=== PATIENT | female | born 1935 | race Caucasian/White ===

== ENCOUNTER 2016-11-19 14:02 | Outpatient (CLI) | payer MEDICARE ==
[2016-11-19 14:56] LABS: Prothrombin Time 26.2 SEC (12.0-14.7)
== END 2016-11-19 14:03 | disposition home or self-care (01) ==
LOC: NAV LAB 14:02
PROVIDERS: ATTEND Nurse Practitioner Family
DX: Z51.81 Encounter for therapeutic drug level monitoring (principal); Z79.01 Long term (current) use of anticoagulants
CPT/HCPCS: 85610

== ENCOUNTER 2016-12-09 14:50 | Outpatient (CLI) | payer MEDICARE ==
[2016-12-09 17:22] LABS: Prothrombin Time 26.7 SEC (12.0-14.7)
== END 2016-12-09 14:51 | disposition home or self-care (01) ==
LOC: NAV LABSP 14:50
PROVIDERS: ATTEND Nurse Practitioner Family
DX: Z51.81 Encounter for therapeutic drug level monitoring (principal); Z79.01 Long term (current) use of anticoagulants
CPT/HCPCS: 85610

== ENCOUNTER 2017-02-23 17:44 | Emergency (ER) | payer MEDICARE ==
[2017-02-23] MEDS ORDERED: traMADol HCl 50 MG TAB ONE (18:59)
--- NOTE | 2017-02-23 19:10 | RAD ---
RIGHT ANKLE THREE VIEWS: 02/23/17 HISTORY: Heel pain. There are prominent calcaneal spurs present. Subtalar joint and ankle joint appear unremarkable. IMPRESSION: Prominent calcaneal spurs. POS: [facility]
== END 2017-02-23 19:10 | disposition home or self-care (01) ==
LOC: NAV ERS 17:44
DX: S86.011A Strain of right Achilles tendon, initial encounter (principal); I25.2 Old myocardial infarction; E03.9 Hypothyroidism, unspecified; E11.9 Type 2 diabetes mellitus without complications; E78.5 Hyperlipidemia, unspecified; E78.00 Pure hypercholesterolemia, unspecified; F17.210 Nicotine dependence, cigarettes, uncomplicated; Z79.899 Other long term (current) drug therapy; Z79.82 Long term (current) use of aspirin; X58.XXXA Exposure to other specified factors, initial encounter

== ENCOUNTER 2017-02-26 11:14 | Emergency (ER) | payer MEDICARE ==
--- NOTE | 2017-02-26 12:42 | RAD ---
RIGHT FOOT 3 VIEWS: Date: 02/26/17 HISTORY: Heel pain. FINDINGS: There are some minimal arthritic changes of the great toe. Prominent calcaneal spurs are seen, parti cularly at the Achilles tendon insertion. No fractures. IMPRESSION: Calcaneal spurs. POS: [facility]
== END 2017-02-26 12:36 | disposition home or self-care (01) ==
LOC: NAV ERS 11:14
DX: M79.671 Pain in right foot (principal); E11.9 Type 2 diabetes mellitus without complications; E03.9 Hypothyroidism, unspecified; I11.0 Hypertensive heart disease with heart failure; I50.9 Heart failure, unspecified; E78.00 Pure hypercholesterolemia, unspecified; Z95.0 Presence of cardiac pacemaker; Z87.891 Personal history of nicotine dependence; Z79.82 Long term (current) use of aspirin; Z79.01 Long term (current) use of anticoagulants; Z79.899 Other long term (current) drug therapy

== ENCOUNTER 2017-03-30 12:48 | Emergency (ER) | payer MEDICARE ==
[2017-03-30 13:23] LABS: #Basophils 0.1 thou/uL (0.0-0.2); #Eosinphils 0.1 thou/uL (0.0-0.7); #Lymphocytes 1.2 thou/uL (1.20-3.40); #Monocytes 0.8 thou/uL (0.11-0.59); #Neutrophils 6.9 thou/uL (1.40-6.50); %Basophils 0.9 % (0.0-1.0); %Lymphocytes 12.7 % (21.0-51.0); %Monocytes 9.1 % (0.0-10.0); %Neutrophils 76.2 % (42.0-75.0); Hemoglobin 11.8 g/dL (12.0-16.0); Mean Corpuscular HGB CONC 32.6 g/dL (32.0-36.0); Mean Corpuscular Volume 95.2 fl (81.0-99.0); Mean Platelet Volume 9.1 fL (7.4-10.4); Platelet Count 148 thou/uL (130-400); RBC Distribution Width 14.3 % (11.5-14.5); Red Blood Cell (RBC) Count 3.82 mill/uL (4.20-5.40); White Blood Cell (WBC) Count 9.1 thou/uL (4.8-10.8)
--- NOTE | 2017-03-30 14:09 | RAD ---
RIGHT FOOT THREE VIEWS: History: Right foot pain and redness. FINDINGS: No fracture, dislocation, or bony destruction is seen. There are posterior and plantar calcaneal spu rs. Minimal arthritic changes in the great toe are again seen as on 02-26-17. IMPRESSION: No acute process. POS: [facility]
== END 2017-03-30 14:00 | disposition home or self-care (01) ==
LOC: NAV ERS 12:48
DX: M10.9 Gout, unspecified (principal); I25.2 Old myocardial infarction; I11.0 Hypertensive heart disease with heart failure; I50.9 Heart failure, unspecified; E03.9 Hypothyroidism, unspecified; E11.9 Type 2 diabetes mellitus without complications; E78.5 Hyperlipidemia, unspecified; Z95.0 Presence of cardiac pacemaker; Z87.01 Personal history of pneumonia (recurrent); Z87.891 Personal history of nicotine dependence; Z79.01 Long term (current) use of anticoagulants; Z79.891 Long term (current) use of opiate analgesic; Z79.899 Other long term (current) drug therapy; Z79.82 Long term (current) use of aspirin
CPT/HCPCS: 36415; 80048; 84443; 84481; 84550; 85025; 85610

== ENCOUNTER 2017-03-30 13:10 | Outpatient (CLI) | payer MEDICARE ==
[2017-03-30 14:09] LABS: INR-International Normal Ratio 2.7; Prothrombin Time 29.4 SEC (12.0-14.7)
[2017-03-30 14:17] LABS: Anion Gap 16 mmol/L (10-20); BUN (Urea Nitrogen) 37 mg/dL (9.8-20.1); Calc. Creatinine Clearance 0 mL/min (70-130); Calcium 8.8 mg/dL (7.8-10.44); Carbon Dioxide 24 mmol/L (23-31); Chloride 101 mmol/L (98-107); Estimated GFR-MDRD 35; Glucose 122 mg/dL (83-110); Potassium 4.5 mmol/L (3.5-5.1); Sodium 136 mmol/L (136-145)
[2017-03-30 14:48] LABS: Thyroid Stimulating Hormone 32.3762 uIU/mL (0.35-4.94)
== END 2017-03-30 13:11 | disposition home or self-care (01) ==
LOC: NAV LABSP 13:10
PROVIDERS: ATTEND Family Medicine
DX: E03.9 Hypothyroidism, unspecified (principal); Z79.01 Long term (current) use of anticoagulants
CPT/HCPCS: 80048; 84443; 84481; 85610

== ENCOUNTER 2017-04-27 14:15 | Outpatient (CLI) | payer MEDICARE ==
[2017-04-27 16:48] LABS: INR-International Normal Ratio 2.6; Prothrombin Time 29.3 SEC (12.0-14.7)
== END 2017-04-27 14:16 | disposition home or self-care (01) ==
LOC: NAV LABSP 14:15
PROVIDERS: ATTEND Family Medicine
DX: I48.91 Unspecified atrial fibrillation (principal)
CPT/HCPCS: 85610

== ENCOUNTER 2017-05-14 08:16 | Outpatient (CLI) | payer MEDICARE ==
[2017-05-14 09:08] LABS: Cardiac Risk 3.8 (Less than 4.5)
== END 2017-05-14 08:17 | disposition home or self-care (01) ==
LOC: NAV LAB 08:16
PROVIDERS: ATTEND Internal Medicine Cardiovascular Disease
DX: Z51.81 Encounter for therapeutic drug level monitoring (principal); Z79.899 Other long term (current) drug therapy
CPT/HCPCS: 36415; 80061; 84450; 84460

== ENCOUNTER 2017-06-24 16:18 | Outpatient (CLI) | payer MEDICARE ==
[2017-06-24 18:48] LABS: Prothrombin Time 32.7 SEC (12.0-14.7)
== END 2017-06-24 16:19 | disposition home or self-care (01) ==
LOC: NAV LABSP 16:18
PROVIDERS: ATTEND Family Medicine
DX: Z51.81 Encounter for therapeutic drug level monitoring (principal); Z79.01 Long term (current) use of anticoagulants
CPT/HCPCS: 85610

== ENCOUNTER 2017-07-28 14:51 | Outpatient (CLI) | payer MEDICARE ==
[2017-07-28 16:15] LABS: INR-International Normal Ratio 2.9; Prothrombin Time 31.7 SEC (12.0-14.7)
== END 2017-07-28 14:52 | disposition home or self-care (01) ==
LOC: NAV LABSP 14:51
PROVIDERS: ATTEND Family Medicine
DX: Z51.81 Encounter for therapeutic drug level monitoring (principal); Z79.01 Long term (current) use of anticoagulants
CPT/HCPCS: 85610

== ENCOUNTER 2017-08-11 08:17 | Outpatient (CLI) | payer MEDICARE ==
--- NOTE | 2017-08-11 13:41 | ULT ---
RENAL ULTRASOUND: Comparison: None. History: Renal cysts. Technique: Multiplanar grayscale and color doppler images were obtained in a renal ultrasound. FINDINGS: The kidneys are normal in echogenicity without hydronephrosis or calculi and measures 10.7 and 11.6 cm in length on the right and left, respectively. There are cysts seen in both kidneys. The largest is seen on the right measuring 1.8 cm in greatest dimension. Limited visualization of the urinary bladder is unremarkable. IMPRESSION: Bilateral renal cysts. POS: [facility]
== END 2017-08-11 08:18 | disposition home or self-care (01) ==
LOC: NAV ULT 08:17
PROVIDERS: ATTEND Internal Medicine Nephrology
DX: N18.4 Chronic kidney disease, stage 4 (severe) (principal); Q61.02 Congenital multiple renal cysts
CPT/HCPCS: 76770

== ENCOUNTER 2017-12-16 07:48 | Outpatient (CLI) | payer MEDICARE ==
--- NOTE | 2017-12-16 10:18 | ULT ---
BILATERAL RENAL ULTRASOUND: HISTORY: Bilateral renal ultrasound. HISTORY: Chronic kidney disease, unspecified (N18.9). FINDINGS: The right kidney measures 10.6 cm in length and the left kidney measures 10.8 cm in length. Cysts ar e seen in the kidneys on either side, the largest measuring 1.8 cm on the right and 1.3 cm on the lef t. No hydronephrosis is identified. No shadowing calculi are seen. The prevoid bladder volume measures 198 cc and a postvoid residual of 197 cc. IMPRESSION: 1. Bilateral renal cysts. 2. No significant emptying of the urinary bladder on postvoid imaging. POS: [facility]
== END 2017-12-16 07:49 | disposition home or self-care (01) ==
LOC: NAV ULT 07:48
PROVIDERS: ATTEND Internal Medicine Nephrology
DX: N18.4 Chronic kidney disease, stage 4 (severe) (principal); N28.1 Cyst of kidney, acquired
CPT/HCPCS: 76770

== ENCOUNTER 2018-01-16 11:43 | Emergency (ER) | payer MEDICARE ==
--- NOTE | 2018-01-16 14:49 | RAD ---
THREE VIEWS RIGHT THUMB: HISTORY: An 82-year-old who presents with a history of right thumb injury. FINDINGS: AP, lateral, and oblique views right thumb are obtained. The right thumb is unremarkable. No evidence of phalangeal fracture is seen. There does appear to be a tiny area of soft tissue calcification along the lateral aspect of the 1st carpometacarpal joint. This may represent a tiny avulsion fracture versus area of soft tissue calcif ication which may be more chronic. Correlate with clinical exam. IMPRESSION: Possible soft tissue calcification versus small avulsion fracture involving the articulation of the 1 st carpometacarpal joint. The rest of the right thumb is unremarkable. POS: [facility]
== END 2018-01-16 13:10 | disposition home or self-care (01) ==
LOC: NAV ERS 11:43
DX: S63.601A Unspecified sprain of right thumb, initial encounter (principal); I11.0 Hypertensive heart disease with heart failure; I50.9 Heart failure, unspecified; I25.2 Old myocardial infarction; E11.9 Type 2 diabetes mellitus without complications; E03.9 Hypothyroidism, unspecified; E78.5 Hyperlipidemia, unspecified; E66.9 Obesity, unspecified; M10.9 Gout, unspecified; Z87.891 Personal history of nicotine dependence; Z79.82 Long term (current) use of aspirin; Z79.899 Other long term (current) drug therapy; Z79.01 Long term (current) use of anticoagulants; X58.XXXA Exposure to other specified factors, initial encounter
CPT/HCPCS: 29125

== ENCOUNTER 2018-01-29 07:53 | Emergency (ER) | payer MEDICARE ==
[2018-01-29] MEDS ORDERED: predniSONE 20 MG TAB ONE (08:21)
== END 2018-01-29 08:42 | disposition home or self-care (01) ==
LOC: NAV ERS 07:53
DX: M10.9 Gout, unspecified (principal); I25.2 Old myocardial infarction; E11.9 Type 2 diabetes mellitus without complications; I11.0 Hypertensive heart disease with heart failure; I50.9 Heart failure, unspecified; E03.9 Hypothyroidism, unspecified; Z87.01 Personal history of pneumonia (recurrent); Z79.01 Long term (current) use of anticoagulants; Z79.82 Long term (current) use of aspirin; Z79.899 Other long term (current) drug therapy
CPT/HCPCS: 99283; J7506

== ENCOUNTER 2018-05-21 14:01 | Inpatient (IN) | payer MEDICARE ==
[2018-05-21 14:11] VITALS: BMI 40.1
[2018-05-21] MEDS ORDERED: Milk Of Magnesia 30 ML UDCUP PO PRN (18:18)
[2018-05-21] MEDS ORDERED: Loperamide HCl 2 MG CAP PO PRN (18:18)
[2018-05-21] MEDS ORDERED: Ondansetron ODT 4 MG TAB PO PRN (18:18)
[2018-05-21] MEDS ORDERED: Mag-Al 1200 mg/1200 mg/30 ML UDCUP PO PRN (18:18)
[2018-05-21] MEDS: Amoxicillin/Potassium Clav 875 MG TAB PO SCH (20:54)
[2018-05-21] MEDS: Carvedilol 3.125 MG TAB PO SCH (20:54)
[2018-05-21] MEDS: Gabapentin 100 MG CAP PO SCH (20:55)
[2018-05-21] MEDS: Simvastatin 10 MG TAB PO SCH (20:56)
[2018-05-21] MEDS: Sacubitril 49 MG/Valsartan 51 MG TABLET PO SCH (20:56)
[2018-05-22 01:22] LABS: Bilirubin Negative (Negative); Blood, Urine Negative (Negative); Clarity Clear (Clear); Glucose, Urine (Dipstick) Negative (Negative); Leukocyte Negative (Negative); Nitrite Negative (Negative); Protein, Urine (Dipstick) Trace mg/dL (Neg-Trace); Urobilinogen 0.2 mg/dL (0.2-1.0); pH, Urine 5.5 (5.0-9.0)
[2018-05-22 01:47] LABS: Bacteria/HPF None Seen HPF (None Seen); Squamous Epithelial None Seen HPF (0-3); Transitional Epithelial 0-3 HPF (0-3); WBC/HPF None Seen HPF (0-3)
[2018-05-22] MEDS: traMADol HCl 50 MG TAB PO PRN (02:45)
[2018-05-22] MEDS: Levothyroxine Sodium 100 MCG TAB PO SCH (05:18)
[2018-05-22] MEDS: Levothyroxine Sodium 75 MCG TAB PO SCH (05:20)
[2018-05-22 05:41] LABS: INR-International Normal Ratio 1.6; Prothrombin Time 19.3 SEC (12.0-14.7)
[2018-05-22 05:45] LABS: RBC/HPF None Seen HPF (0-3)
[2018-05-22 05:49] LABS: ALT (SGPT) 19 U/L (8-55); AST (SGOT) 17 U/L (5-34); Albumin 3.4 g/dL (3.4-4.8); Alkaline Phosphatase 64 U/L (40-150); Anion Gap 12 mmol/L (10-20); BUN (Urea Nitrogen) 30 mg/dL (9.8-20.1); Bilirubin, Total 0.5 mg/dL (0.2-1.2); Calc. Creatinine Clearance 70 mL/min (70-130); Calcium 8.9 mg/dL (7.8-10.44); Carbon Dioxide 27 mmol/L (23-31); Chloride 104 mmol/L (98-107); Estimated GFR-MDRD 45; Globulin 2.6 g/dL (2.4-3.5); Glucose 128 mg/dL (83-110); Potassium 4.3 mmol/L (3.5-5.1); Sodium 139 mmol/L (136-145)
[2018-05-22 05:50] LABS: Band 1 % (5-11); Eosinophils 6 % (0-10); Hemoglobin 9.7 g/dL (12.0-16.0); Lymphocytes 12 % (21-51); MDiff Complete? YES; Mean Corpuscular HGB CONC 30.6 g/dL (32.0-36.0); Mean Corpuscular Hemoglobin 29.5 pg (27.0-31.0); Mean Corpuscular Volume 96.5 fL (78.0-98.0); Mean Platelet Volume 8.7 fL (7.4-10.4); Monocytes 6 % (0-10); Neutrophil 75 % (42-75); PLT Morphology Comment Appears Adequate; Platelet Count 162 thou/uL (130-400); RBC Morphology Normal; Red Blood Cell (RBC) Count 3.29 mill/uL (4.20-5.40); White Blood Cell (WBC) Count 9.9 thou/uL (4.8-10.8)
[2018-05-22] MEDS: Amoxicillin/Potassium Clav 875 MG TAB PO SCH ×2 (09:00→21:26)
[2018-05-22] MEDS: Ascorbic Acid 500 mg Chewable Tablet PO SCH (09:01)
[2018-05-22] MEDS: Gabapentin 100 MG CAP PO SCH ×2 (09:01→21:26)
[2018-05-22] MEDS: Docusate 100 MG CAP PO SCH (09:01)
[2018-05-22] MEDS: Sacubitril 49 MG/Valsartan 51 MG TABLET PO SCH ×2 (09:04→21:26)
[2018-05-22] MEDS: Furosemide 40 MG TAB PO SCH (09:04)
[2018-05-22] MEDS: Cyanocobalamin (Vitamin B-12) 1,000 MCG TAB PO SCH (09:05)
[2018-05-22] MEDS: Carvedilol 3.125 MG TAB PO SCH ×2 (09:05→21:30)
[2018-05-22] MEDS: Allopurinol 100 MG TAB PO SCH (09:06)
[2018-05-22] MEDS: Amiodarone 200 MG TAB PO SCH (09:07)
[2018-05-22] MEDS: Pantoprazole 40 MG GRANULES PACKET PO SCH (09:14)
[2018-05-22] MEDS: [UNRECOGNIZED DRUG - OTHER] PO SCH (09:14)
--- NOTE | 2018-05-22 09:42 | HP ---
DATE OF ADMISSION: 05/21/2018 DATE OF PROGRESS NOTE: 05/22/2018 HISTORY OF PRESENT ILLNESS: Ms. Salinas is an 82-year-old white female, who lives at [address] in [place] that went to the emergency room at [facility] with shortness of breat h. She was found to be in congestive heart failure with possible pneumonia. [facility] and diuresed with IV diuretics. She diuresed very well, and ther e was some question about whether she actually had a pneumonia or not. They did cover her and she wa s sent here on Augmentin 875 twice a day for 5 more days. The patient was stabilized and transferred to [facility] for physical therapy and occupational therapy since she lives alone an d needs to be independent once she goes home. PAST MEDICAL HISTORY: Positive for, 1. Type 2 diabetes. 2. Congestive heart failure. 3. Hyperlipidemia. 4. Hypertension. 5. Asthma. 6. Gastroesophageal reflux disease. 7. Hypothyroidism. 8. Gout. 9. Neuropathy. 10. Generalized pain. 11. Vitamin D deficiency. 12. Constipation. PAST SURGICAL HISTORY: Reveals the patient has had a, 1. Cholecystectomy. 2. Pacemaker. 3. Tonsillectomy 4. Tubal ligation. SOCIAL HISTORY: Reveals patient stopped smoking in 1983. She does not work and she is retired. She does not drink or use recreational drugs. ALLERGIES: The patient is noted to be allergic to BENZOYL PEROXIDE. PRESENT MEDICATIONS: Reveal the patient is presently on the followin. Augmentin 875 mg twice a day for 5 more days. 2. Aspirin 81 mg each day. 3. Warfarin 3 mg every day and 4 mg on Mondays. 4. Amiodarone 100 mg daily. 5. Entresto 97-103 one pill twice a day. 6. Carvedilol 3.125 one pill twice a day. 7. Furosemide 40 mg each morning. 8. Pravastatin 20 mg daily. 9. Levothyroxine 175 mcg daily. 10. Allopurinol 100 mg and she takes 2 pills each morning. 11. Gabapentin 100 mg twice a day. 12. Tramadol 50 mg q.6 hours p.r.n. severe pain. 13. Pantoprazole 40 mg each day. 14. B12 2500 International Units 1 a day. 15. Vitamin C 500 mg each day. 16. Vitamin D3 1000 mg each day. 17. Iron 27 mg each day. 18. Docusate 100 mg daily. 19. Colon clear 1 pill each day. REVIEW OF SYSTEMS: Constitutional: Patient denies any fever, chills, or night sweats. She does com plain of a cough, which is much improved, and she has no significant short of breath. She does use o xygen at night. Cardiovascular: The patient denies chest pain, palpitations, dyspnea on exertion. Gastrointestinal: The patient denies nausea, vomiting, diarrhea, constipation, bloody or black or ta rry stools. Genitourinary: The patient denies burning, urgency, frequency. Musculoskeletal: Neuro logy: Patient denies headaches, dizziness, lightheadedness, or focal deficits. Skin: The patient d enies focal rashes or local lesions. PHYSICAL EXAMINATION: GENERAL: This is a well-developed, well-nourished, very pleasant, obese white female, in no apparent distress. VITAL SIGNS: This morning reveal blood pressure 121/63, pulse 75, respirations 20, O2 sat 93%-94% on 4 liters nasal cannula, T-max 98.1. HEENT: Reveals normocephalic, nontraumatic cranium. Pupils equally round and reactive. Extraocular movements intact. Nose and throat are slightly dry. NECK: Supple, without mass, nodes, or bruits. CHEST: Clear to auscultation. No rales, rhonchi, or wheezes are heard. HEART: Reveals a regular rate and rhythm without murmurs, gallops, or rubs. ABDOMEN: Soft, obese, nontender, without organomegaly, normal bowel sounds are noted. No rebound or guarding is noted. GENITOURINARY EXAM: Deferred. EXTREMITIES: Reveal no clubbing or cyanosis, with trace edema. PSYCHIATRIC: The patient is in a good mood. No anxiety or depressive disorder. LABORATORY DATA: Labs this morning revealed white count 9000 with hemoglobin 9.3, hematocrit 31.7. Platelet count is 162,000. INR is 1.6 this morning. Sodium 139, potassium 4.3, chloride 104, carbon dioxide 27 with a BUN 30, creatinine 1.17, which is a bout her normal. Glucose is 128 this morning. Liver enzymes reveal AST is 17, ALT is 19. Urinalysis is unremarkable or normal. ASSESSMENT: 1. Congestive heart failure. 2. Right upper lobe infiltrate, finishing Augmentin in 5 days. 3. History of gastrointestinal bleed, seen by Dr. Dimas Masters, thought to be internal hemorrhoids. Raymond abrams will continue to follow. 4. Acute hypoxic respiratory failure, secondary to congestive heart failure/pneumonia. The patient is much improved. 5. Normocytic anemia, stable. 6. Chronic kidney disease, stage 3, stable. 7. [id number]-[id number] myocardial infarction, type 2, with troponin 0.053. 8. Urinary tract infection with a white count of 7,000-10,000. Patient continues on Augmentin for p neumonia and that will cover both. 9. Deep venous thrombosis prophylaxis. 10. Hypothyroidism. Continue 175 mcg of levothyroxine. 11. History of atrial fibrillation. Continue amiodarone. 12. Hypertension, under good control. PLAN: The patient is admitted here for physical therapy and occupational therapy. We will continue her on her present medications. We will continue to follow her closely, and since she lives alone, raymond abrams will try to make her independent.
[2018-05-22] MEDS ORDERED: Warfarin Sodium 1 MG TAB PO SCH (17:00)
--- NOTE | 2018-05-22 17:59 | RAD ---
PORTABLE CHEST: History: CHF. Pneumonia. Comparison: 05-18-18 FINDINGS/IMPRESSION: Cardiomegaly with vascular congestion again noted. Confluent infiltrates in the right upper and both lower lungs again noted. Some of this may represent edema although superimposed inflammatory infiltra sunny may be present. No significant change from 05-18-18 noted. POS: [facility]
[2018-05-22] MEDS: Simvastatin 10 MG TAB PO SCH (21:26)
[2018-05-23 05:24] LABS: INR-International Normal Ratio 1.5; Prothrombin Time 18.5 SEC (12.0-14.7)
[2018-05-23] MEDS: Levothyroxine Sodium 100 MCG TAB PO SCH (06:25)
[2018-05-23] MEDS: Levothyroxine Sodium 75 MCG TAB PO SCH (06:25)
[2018-05-23] MEDS: traMADol HCl 50 MG TAB PO PRN (07:01)
[2018-05-23] MEDS: Amiodarone 200 MG TAB PO SCH (09:38)
[2018-05-23] MEDS: Allopurinol 100 MG TAB PO SCH (09:38)
[2018-05-23] MEDS: Carvedilol 3.125 MG TAB PO SCH ×2 (09:38→21:15)
[2018-05-23] MEDS: Gabapentin 100 MG CAP PO SCH ×2 (09:44→21:15)
[2018-05-23] MEDS: Amoxicillin/Potassium Clav 875 MG TAB PO SCH ×2 (09:44→21:14)
[2018-05-23] MEDS: Furosemide 40 MG TAB PO SCH (09:44)
[2018-05-23] MEDS: Docusate 100 MG CAP PO SCH (09:45)
[2018-05-23] MEDS: Sacubitril 49 MG/Valsartan 51 MG TABLET PO SCH ×2 (09:45→21:14)
[2018-05-23] MEDS: Cyanocobalamin (Vitamin B-12) 1,000 MCG TAB PO SCH (09:47)
[2018-05-23] MEDS: Ascorbic Acid 500 mg Chewable Tablet PO SCH (09:47)
[2018-05-23] MEDS ORDERED: Warfarin Sodium 5 MG TAB PO SCH (10:00)
[2018-05-23] MEDS: [UNRECOGNIZED DRUG - OTHER] PO SCH (11:45)
[2018-05-23] MEDS: Pantoprazole 40 MG GRANULES PACKET PO SCH (11:48)
--- NOTE | 2018-05-23 13:34 | PRG ---
DATE OF SERVICE: 05/23/2018 HISTORY: Ms. Salinas is a well-developed, well-nourished, very pleasant white female that lives at [address] in [place], [place]. She was seen in the emergency room at [facility] with shortness of breath and found to have congestive heart failure along with possible pneumonia. She w as admitted to the hospital and started on IV antibiotics and diuresed with IV diuretics. She was sw itched over to Augmentin 875 mg twice a day for 5 more days. She was stabilized and transferred to [facility] for physical therapy and occupational therapy. She lives alone and needs t o be more independent. This morning, the patient states she is doing well. I did tell that her INR was subtherapeutic at 1. 5 and yesterday it was 1.6. She takes alternating doses of Coumadin 3 mg 1 day and 4 mg the next day. We will give an extra 5 mg today and then start her on 4 mg every day. The patient states she is doing well and has no complaints today and looking forward to physical therapy instructor apy and occupational therapy. PHYSICAL EXAMINATION: VITAL SIGNS: Today reveal blood pressure is pending, pulse 73, respirations 20, O2 sat 96-98% on rolly m air, T-max 98.1. GENERAL: This is a well-developed, well-nourished, very pleasant, slightly obese white female in no apparent distress at this time. HEENT: Reveals normocephalic, nontraumatic cranium. Pupils are equal, round, and reactive. Extraoc ular movements intact. Nose and throat are slightly dry, but clear. NECK: Supple, without mass, nodes or bruits. CHEST: Clear to auscultation. No rales, no rhonchi, no wheezes or cough is heard today. CARDIOVASCULAR: Reveals a regular rate and rhythm without murmurs, gallops or rubs. ABDOMEN: Soft, nontender, slightly obese without organomegaly. Normal bowel sounds are noted. No r ebound or guarding is noted. : Deferred. EXTREMITIES: Reveal no clubbing, cyanosis with still trace edema. NEUROLOGIC: The patient is oriented to person, place, time, and situation. She has no significant a nxiety or depressive disorder. We will increase her Coumadin to 4 mg daily, and given an extra dose of 5 mg today. ASSESSMENT: 1. Congestive heart failure. 2. Right upper lobe infiltrate, finish Augmentin for 5 more days. 3. History of GI be followed by Dr. Dimas Masters thought to be internal hemorrhoids. We will continue to follow. 5. Acute hypoxic respiratory failure secondary to congestive heart failure and responding well to di uresis. 6. Normocytic anemia. 7. Chronic kidney disease stage 3. 8. Non-ST elevated myocardial infarction, type 2, with a troponin 0.053. 9. Urinary tract infection. White count is 7-10. The patient continues on Augmentin for pneumonia and that should cover her urinary tract infection. 10. Deep venous thrombosis prophylaxis. 11. Hypothyroidism. 12. History of atrial fibrillation. Continue amiodarone. 13. Hypertension under good control. PLAN: 1. Like I said before increase the Coumadin to 4 mg daily, and given an extra dose of 5 today. 2. Physical therapy and occupational therapy. 3. Stress ulcer prophylaxis. 4. Decubitus precautions. 5. Deep venous thrombosis precautions.
[2018-05-23] MEDS: Warfarin Sodium 2 MG TAB PO SCH (17:18)
[2018-05-23] MEDS: Simvastatin 10 MG TAB PO SCH (21:15)
[2018-05-24] MEDS: Levothyroxine Sodium 75 MCG TAB PO SCH (05:10)
[2018-05-24] MEDS: Levothyroxine Sodium 100 MCG TAB PO SCH (05:10)
[2018-05-24 05:24] LABS: INR-International Normal Ratio 1.6; Prothrombin Time 18.9 SEC (12.0-14.7)
[2018-05-24] MEDS: Allopurinol 100 MG TAB PO SCH (08:35)
[2018-05-24] MEDS: Amiodarone 200 MG TAB PO SCH (08:36)
[2018-05-24] MEDS: Carvedilol 3.125 MG TAB PO SCH ×2 (08:38→20:54)
[2018-05-24] MEDS: Ascorbic Acid 500 mg Chewable Tablet PO SCH (08:38)
[2018-05-24] MEDS: Furosemide 40 MG TAB PO SCH (08:39)
[2018-05-24] MEDS: Cyanocobalamin (Vitamin B-12) 1,000 MCG TAB PO SCH (08:39)
[2018-05-24] MEDS: Sacubitril 49 MG/Valsartan 51 MG TABLET PO SCH ×2 (08:40→20:54)
[2018-05-24] MEDS: Gabapentin 100 MG CAP PO SCH ×2 (08:40→20:54)
[2018-05-24] MEDS: [UNRECOGNIZED DRUG - OTHER] PO SCH (08:46)
[2018-05-24] MEDS: Amoxicillin/Potassium Clav 875 MG TAB PO SCH ×2 (08:59→20:54)
[2018-05-24] MEDS: Docusate 100 MG CAP PO SCH (08:59)
[2018-05-24] MEDS: traMADol HCl 50 MG TAB PO PRN (09:00)
[2018-05-24] MEDS: Pantoprazole 40 MG GRANULES PACKET PO SCH (14:13)
[2018-05-24] MEDS: Warfarin Sodium 2 MG TAB PO SCH (17:18)
[2018-05-24] MEDS: Simvastatin 10 MG TAB PO SCH (20:54)
--- NOTE | 2018-05-24 21:51 | PRG ---
DATE OF SERVICE: 05/24/2018. HISTORY OF PRESENT ILLNESS: Ms. Salinas is a well-developed, well-nourished, slightly obese white fem adriana that lives in [address] in [place]. She was admitted to [facility] with shor tness of breath and found to have congestive heart failure with pneumonia. She was eventually stabil ized after being diuresed and placed on IV antibiotics. She was transferred to [facility] on Augmentin 875 twice a day for 5 more days and oral Lasix. She was transferred here for phys ical therapy and occupational therapy. The patient states she is doing very well and is looking forward to therapy today. Her INR has been low and so we did give her an extra dose of 5 mg Coumadin yesterday along with 4 mg every day. Her INR this morning has gone from 1.5-1.6. We will continue to recheck at each morning. PHYSICAL EXAMINATION: VITAL SIGNS: Today reveal blood pressure this morning was 133/58, pulse 72, respirations 18, O2 sat 93%-95% on 3 L that is much improved. T-max is 98.8. GENERAL: This is a well-developed, well-nourished, very pleasant white female in no apparent distres s at this time. HEENT: Reveals normocephalic, nontraumatic cranium. Pupils are equal, round, and reactive. Extraoc ular movements intact. Nose and throat are clear. NECK: Supple, without mass, nodes, bruits. LUNGS: Chest is clear to auscultation. No rales, rhonchi, wheezes or cough is heard. HEART: Reveals a regular rate and rhythm without murmurs, gallops or rubs. ABDOMEN: Slightly obese, soft, nontender, without organomegaly. Normal bowel sounds are noted in al l 4 quadrants. No rebound or guarding is noted. : Deferred. EXTREMITIES: Reveal no clubbing, cyanosis. The patient continues to have a trace edema. NEUROLOGIC: Patient is oriented to person, place, and time. IMPRESSION: 1. Congestive heart failure. 2. Right upper lobe pneumonia infiltrate, finish Augmentin for a total of 4 more days. 3. History of gastrointestinal bleed followed by Dr. Masters. 4. Acute hypoxic respiratory failure secondary to congestive heart failure respond to diuresis. 5. Normocytic anemia. 6. Chronic kidney disease stage 3. 7. Non-ST elevated myocardial infarction type 2, with a troponin of 0.03. 8. Urinary tract infection, 7-10 wbc's per high power field. The patient will continue her Augment in. 9. Deep venous thrombosis prophylaxis. 10. Hypothyroidism. 11. History of atrial fibrillation. We will continue amiodarone. 12. Hypertension. PLAN: 1. Coumadin has been increased to 4 mg daily with an extra 5 mg dose yesterday. 2. Stress ulcer prophylaxis. 3. Continue decubitus precautions. 4. Deep venous thrombosis precautions. 5. Continue physical therapy and occupational therapy. 6. Continue to follow the patient closely for signs and symptoms of congestive heart failure. 7. Continue to monitor the patient's blood pressure closely. 8. Monitor the patient rate for RVR.
[2018-05-25] MEDS: Levothyroxine Sodium 100 MCG TAB PO SCH (05:11)
[2018-05-25] MEDS: Levothyroxine Sodium 75 MCG TAB PO SCH (05:11)
[2018-05-25 05:27] LABS: INR-International Normal Ratio 1.9
[2018-05-25] MEDS: Ascorbic Acid 500 mg Chewable Tablet PO SCH (10:00)
[2018-05-25] MEDS: Gabapentin 100 MG CAP PO SCH ×2 (10:01→20:55)
[2018-05-25] MEDS: Docusate 100 MG CAP PO SCH (10:02)
[2018-05-25] MEDS: Amiodarone 200 MG TAB PO SCH (10:02)
[2018-05-25] MEDS: Carvedilol 3.125 MG TAB PO SCH ×2 (10:04→20:55)
[2018-05-25] MEDS: Sacubitril 49 MG/Valsartan 51 MG TABLET PO SCH ×2 (10:04→20:55)
[2018-05-25] MEDS: Amoxicillin/Potassium Clav 875 MG TAB PO SCH ×2 (10:06→20:55)
[2018-05-25] MEDS: Furosemide 40 MG TAB PO SCH (10:07)
[2018-05-25] MEDS: Allopurinol 100 MG TAB PO SCH (10:07)
[2018-05-25] MEDS: Cyanocobalamin (Vitamin B-12) 1,000 MCG TAB PO SCH (10:08)
[2018-05-25] MEDS: [UNRECOGNIZED DRUG - OTHER] PO SCH (10:13)
[2018-05-25] MEDS: traMADol HCl 50 MG TAB PO PRN (14:05)
[2018-05-25] MEDS: Warfarin Sodium 2 MG TAB PO SCH (17:51)
--- NOTE | 2018-05-25 18:30 | PRG ---
DATE OF SERVICE: 05/25/2018 DATE OF ADMISSION: 05/21/2018 HISTORY OF PRESENT ILLNESS: Ms. Salinas is a very pleasant 82-year-old white female that lives at [facility] in [place]. She was admitted to [facility] with acute congestive h eart failure and pneumonia. She was stabilized eventually after IV antibiotics and IV diuresis. She was transferred to [facility] on Augmentin 875 twice a day for 5 more days and oral Lasix. She was transferred here for physical therapy and occupational therapy. We are watching her BMP, her labs and her congestive heart failure closely. The patient states she is doing well, but her Coumadin level is still somewhat low. We did bump her Coumadin to 5 mg of an extra dose day before yesterday and 4 mg every day. The patient states she is doing well and has no complaints today. PHYSICAL EXAMINATION: VITAL SIGNS: Reveal blood pressure this morning 138/61, pulse 74, respirations 20, O2 sat 96% on 3 l iters, T-max is 97.7. GENERAL: This is a well-developed, well-nourished, very pleasant, slightly obese white female in no apparent distress at this time. HEENT: Reveals normocephalic, nontraumatic cranium. Pupils are equal, round, and reactive. Extraoc ular movements intact. Nose and throat are slightly dry, but clear. NECK: Supple, without mass, nodes or bruits. CHEST: Clear to auscultation. No rales, rhonchi, wheezes or cough is heard. HEART: Reveals a regular rate and rhythm without murmurs, gallops or rubs. ABDOMEN: Soft and nontender without organomegaly, normal bowel sounds are noted in all 4 quadrants. No rebound or guarding is noted. : Deferred. EXTREMITIES: Reveal no clubbing, cyanosis or edema. LABORATORY DATA: Today reveals INR of 1.9. ASSESSMENT: 1. Congestive heart failure, presently stable. 2. Right upper lobe pneumonia infiltrate finishing Augmentin. 3. Gastrointestinal bleed, followed by Dr. Masters. 4. Acute hypoxic respiratory failure secondary to congestive heart failure response to diuresis. 5. Normocytic anemia. 6. Chronic kidney disease stage 3. 7. Non-ST elevated AL, type 2, with troponin of 0.03. 8. Urinary tract infection. The patient will continue Augmentin. 9. Deep venous thrombosis prophylaxis. 10. Hypothyroidism. 11. History of atrial fibrillation, we will continue amiodarone. 12. Hypertension. PLAN: 1. The patient's Coumadin has been increased to 4 mg daily. 2. Continue stress ulcer prophylaxis. 3. Continue decubitus precautions. 4. DVT prophylaxis per primary service. 5. Continue physical therapy and occupational therapy. 6. Follow patient for signs and symptoms of congestive heart failure. 7. Monitor the patient's INR closely daily. 8. Continue to monitor the patient's blood pressure closely. 9. Monitor the patient's rate for RVR.
[2018-05-25] MEDS: Simvastatin 10 MG TAB PO SCH (20:56)
[2018-05-26] MEDS: traMADol HCl 50 MG TAB PO PRN (02:16)
[2018-05-26] MEDS: Levothyroxine Sodium 100 MCG TAB PO SCH (05:24)
[2018-05-26] MEDS: Levothyroxine Sodium 75 MCG TAB PO SCH (05:24)
[2018-05-26 05:32] LABS: #Eosinphils 0.2 thou/uL (0.0-0.7); #Lymphocytes 1.4 thou/uL (1.20-3.40); #Monocytes 0.5 thou/uL (0.11-0.59); %Basophils 0.6 % (0.0-1.0); %Eosinophils 2.9 % (0.0-10.0); %Lymphocytes 17.3 % (21.0-51.0); %Monocytes 6.5 % (0.0-10.0); %Neutrophils 72.8 % (42.0-75.0); Mean Corpuscular HGB CONC 31.1 g/dL (32.0-36.0); Mean Corpuscular Hemoglobin 29.8 pg (27.0-31.0); Mean Corpuscular Volume 95.8 fL (78.0-98.0); Platelet Count 133 thou/uL (130-400); RBC Distribution Width 15.1 % (11.5-14.5); Red Blood Cell (RBC) Count 3.01 mill/uL (4.20-5.40); White Blood Cell (WBC) Count 8.2 thou/uL (4.8-10.8)
[2018-05-26 05:43] LABS: INR-International Normal Ratio 2.1; Prothrombin Time 23.8 SEC (12.0-14.7)
[2018-05-26 05:53] LABS: ALT (SGPT) 21 U/L (8-55); AST (SGOT) 19 U/L (5-34); Albumin 3.2 g/dL (3.4-4.8); Alkaline Phosphatase 66 U/L (40-150); Anion Gap 13 mmol/L (10-20); BUN (Urea Nitrogen) 18 mg/dL (9.8-20.1); Bilirubin, Total 0.4 mg/dL (0.2-1.2); Calc. Creatinine Clearance 82 mL/min (70-130); Calcium 8.6 mg/dL (7.8-10.44); Carbon Dioxide 28 mmol/L (23-31); Chloride 102 mmol/L (98-107); Estimated GFR-MDRD 53; Globulin 2.3 g/dL (2.4-3.5); Glucose 127 mg/dL (83-110); Potassium 3.8 mmol/L (3.5-5.1); Protein, Total 5.5 g/dL (6.0-8.3); Sodium 139 mmol/L (136-145)
[2018-05-26] MEDS: Cyanocobalamin (Vitamin B-12) 1,000 MCG TAB PO SCH (09:03)
[2018-05-26] MEDS: Docusate 100 MG CAP PO SCH (09:03)
[2018-05-26] MEDS: Allopurinol 100 MG TAB PO SCH (09:04)
[2018-05-26] MEDS: [UNRECOGNIZED DRUG - OTHER] PO SCH (09:05)
[2018-05-26] MEDS: Ascorbic Acid 500 mg Chewable Tablet PO SCH (09:05)
[2018-05-26] MEDS: Sacubitril 49 MG/Valsartan 51 MG TABLET PO SCH ×2 (09:05→21:02)
[2018-05-26] MEDS: Furosemide 40 MG TAB PO SCH (09:06)
[2018-05-26] MEDS: Amoxicillin/Potassium Clav 875 MG TAB PO SCH ×2 (09:06→21:02)
[2018-05-26] MEDS: Gabapentin 100 MG CAP PO SCH ×2 (09:06→21:03)
[2018-05-26] MEDS: Amiodarone 200 MG TAB PO SCH (09:07)
[2018-05-26] MEDS: Carvedilol 3.125 MG TAB PO SCH ×2 (09:07→21:03)
[2018-05-26] MEDS: Warfarin Sodium 2 MG TAB PO SCH (17:18)
--- NOTE | 2018-05-26 20:24 | PRG ---
DATE OF SERVICE: 05/26/2018 HISTORY OF PRESENT ILLNESS: Mrs. Mariano is an 82-year-old very pleasant white female that lives at in [place], [place]. She presented to [facility] with pneumonia. S he was stabilized after IV antibiotics and IV diuresis and transferred to [facility] for continued physical therapy and occupational therapy. We are watching her BNP which was 790s and she is still on Augmentin 875 twice a day. She is still and Lasix. The patient states she is doing well. I did talk with physical therapy and thought she is improving, but not good enough to go home by herself since she lives at [facility] by herself. She has a few more days of therapy, so we will continue and reevaluate her next week. PHYSICAL EXAMINATION: VITAL SIGNS: Today reveal blood pressure 121/58, pulse 74-78, respirations 18-20, O2 sat 93%-95% on 3 liters nasal cannula. T-max is 97.1. GENERAL: This is a well-developed, well-nourished, very pleasant, obese white female in no apparent distress at this time. HEENT: Reveals normocephalic, nontraumatic cranium. Pupils equal, round, and reactive. Extraocular movements intact. Nose and throat are clear. NECK: Supple, without mass, nodes or bruits. CHEST: Clear to auscultation. No rales, rhonchi, wheezes or cough is heard. CARDIOVASCULAR: Reveals a regular rate and rhythm. ABDOMEN: Soft, nontender, without organomegaly, normal bowel sounds are noted in all 4 quadrants. N o rebound or guarding is noted. : Deferred. EXTREMITIES: Reveal no clubbing, cyanosis or edema. LABORATORY DATA: INR today was 1.2. IMPRESSION: 1. Congestive heart failure, presently stable. 2. Right upper lobe pneumonia infiltrate, finishing Augmentin. 3. Gastrointestinal bleed, followed by Dr. Masters. 4. Acute hypoxic respiratory failure secondary to congestive heart failure, which responded very wel l to diuresis. 5. Normocytic anemia. 6. Chronic kidney disease stage 3. 7. Non-ST elevated myocardial infarction, type 2, with troponin of 0.03. 8. Urinary tract infection. Continue Augmentin. 9. Deep venous thrombosis prophylaxis. 10. Hypothyroidism. 11. History of atrial fibrillation. We will continue amiodarone. 12. Hypertension. PLAN: 1. Coumadin has been decreased to 4 mg a day. 2. Kidney and stress ulcer prophylaxis. 3. Continue Decubitus precautions. 4. DVT prophylaxis per primary service. Continue PT and OT. 5. Continue to follow the patient for signs and symptoms of congestive heart failure. 6. Monitor the patient's INR closely daily. 7. Continue to monitor the patient's blood pressure closely. 8. Monitor the patient rate for RVR.
[2018-05-26] MEDS: Simvastatin 10 MG TAB PO SCH (21:03)
[2018-05-27] MEDS: traMADol HCl 50 MG TAB PO PRN ×2 (00:10→15:25)
[2018-05-27] MEDS: Levothyroxine Sodium 75 MCG TAB PO SCH (05:30)
[2018-05-27] MEDS: Levothyroxine Sodium 100 MCG TAB PO SCH (05:30)
[2018-05-27 05:34] LABS: INR-International Normal Ratio 2.4; Prothrombin Time 26.4 SEC (12.0-14.7)
[2018-05-27] MEDS: Allopurinol 100 MG TAB PO SCH (08:48)
[2018-05-27] MEDS: Sacubitril 49 MG/Valsartan 51 MG TABLET PO SCH ×2 (08:49→20:12)
[2018-05-27] MEDS: Docusate 100 MG CAP PO SCH (08:50)
[2018-05-27] MEDS: Ascorbic Acid 500 mg Chewable Tablet PO SCH (08:50)
[2018-05-27] MEDS: Gabapentin 100 MG CAP PO SCH ×2 (08:51→20:13)
[2018-05-27] MEDS: Amiodarone 200 MG TAB PO SCH (08:51)
[2018-05-27] MEDS: Furosemide 40 MG TAB PO SCH (08:53)
[2018-05-27] MEDS: Carvedilol 3.125 MG TAB PO SCH ×2 (08:53→20:13)
[2018-05-27] MEDS: Amoxicillin/Potassium Clav 875 MG TAB PO SCH ×2 (08:54→20:13)
[2018-05-27] MEDS: [UNRECOGNIZED DRUG - OTHER] PO SCH (08:59)
[2018-05-27] MEDS: Cyanocobalamin (Vitamin B-12) 1,000 MCG TAB PO SCH (09:18)
[2018-05-27] MEDS: Warfarin Sodium 2 MG TAB PO SCH (17:41)
--- NOTE | 2018-05-27 18:28 | PRG ---
DATE OF SERVICE: 05/27/2018 DATE OF ADMISSION: 05/21/2018 HISTORY OF PRESENT ILLNESS: Rita is a very pleasant 82-year-old white female that lives at [facility] in [place]. She presented to [facility] with pneumonia and congestive heart failure. She was stabilized after IV antibiotics and diuresis. She was transferred to [facility] for continued PT and OT. We are watching her BPs, BNP typically runs at [facility] in 1999. She is down to 790s. She is on Augmentin 875 twice a day. She is still on her Lasix. She has actually done very well and is scheduled to go home sometimes next week. Vital sign s today reveal blood pressure 133/61, pulse 73, respirations 18, O2 sat 95% on 3 liters, T-max is 98. 0. Laboratory today reveals her INR is up to 2.4, which is therapeutic. She is presently on warfarin 4 mg every day. She did get a bump of an extra 5 mg 2 days ago. She should level out less than 3. PHYSICAL EXAMINATION: GENERAL: This is a well-developed, well-nourished, very pleasant, slightly obese white female in no apparent distress at this time. HEENT: Reveals normocephalic, nontraumatic cranium. Pupils equally round and reactive. Extraocular movements intact. Nose and throat are clear, slightly dry. NECK: Supple, without mass, nodes or bruits. LUNGS: The chest is clear to auscultation. No rales, no rhonchi, no wheezes are heard. No cough is noted today. CARDIOVASCULAR: Reveals a regular rate and rhythm. ABDOMEN: Soft, nontender, without organomegaly, normal bowel sounds noted in all 4 quadrants. No re bound or guarding is noted. GENITOURINARY: Deferred. EXTREMITIES: Reveal no clubbing, cyanosis or edema. LABORATORY DATA: INR was 2.4 today. IMPRESSION: 1. Congestive heart failure, presently stable. 2. Right upper lobe pneumonia, finishing Augmentin. 3. Gastrointestinal bleed, followed by Dr. Masters. 4. Acute hypoxic respiratory failure secondary to congestive heart failure which is responding very well to diuresis. 5. Normocytic anemia. 6. Chronic kidney disease stage 3. 7. Non-ST elevated myocardial infarction, type 2, with a troponin of 0.03. 8. Urinary tract infection. 9. Deep venous thrombosis prophylaxis. 10. Hypothyroidism. 11. History of atrial fibrillation. Continue amiodarone. 12. Hypertension. PLAN: 1. The patient's Coumadin is presently 4 mg daily. 2. Continue stress ulcer prophylaxis. 3. Continue decubitus precautions. 4. Deep venous thrombosis prophylaxis. 5. Follow the patient for signs and symptoms of congestive heart failure. 6. Monitor the patient's INR daily. 7. Continue to monitor the patient's blood pressure closely and continue to monitor the patient's he art rate for RVR. 8. Continue physical therapy and occupational therapy. 9. Anticipated discharge is next week.
[2018-05-27] MEDS: Simvastatin 10 MG TAB PO SCH (20:13)
[2018-05-28] MEDS: traMADol HCl 50 MG TAB PO PRN ×2 (01:36→20:28)
[2018-05-28] MEDS: Levothyroxine Sodium 75 MCG TAB PO SCH (06:14)
[2018-05-28] MEDS: Levothyroxine Sodium 100 MCG TAB PO SCH (06:14)
[2018-05-28 06:32] LABS: INR-International Normal Ratio 2.8; Prothrombin Time 29.8 SEC (12.0-14.7)
[2018-05-28] MEDS: Ascorbic Acid 500 mg Chewable Tablet PO SCH (09:35)
[2018-05-28] MEDS: Docusate 100 MG CAP PO SCH (09:35)
[2018-05-28] MEDS: Sacubitril 49 MG/Valsartan 51 MG TABLET PO SCH ×2 (09:35→20:27)
[2018-05-28] MEDS: Furosemide 40 MG TAB PO SCH (09:36)
[2018-05-28] MEDS: Cyanocobalamin (Vitamin B-12) 1,000 MCG TAB PO SCH (09:36)
[2018-05-28] MEDS: Gabapentin 100 MG CAP PO SCH ×2 (09:36→20:27)
[2018-05-28] MEDS: Amoxicillin/Potassium Clav 875 MG TAB PO SCH ×2 (09:36→20:27)
[2018-05-28] MEDS: Allopurinol 100 MG TAB PO SCH (09:36)
[2018-05-28] MEDS: Amiodarone 200 MG TAB PO SCH (09:37)
[2018-05-28] MEDS: Carvedilol 3.125 MG TAB PO SCH ×2 (09:37→20:27)
[2018-05-28] MEDS: [UNRECOGNIZED DRUG - OTHER] PO SCH (09:40)
[2018-05-28] MEDS: Warfarin Sodium 2 MG TAB PO SCH (17:53)
[2018-05-28] MEDS: Simvastatin 10 MG TAB PO SCH (20:27)
--- NOTE | 2018-05-28 23:12 | PRG ---
DATE OF SERVICE: 05/28/[address] Maureen Chen. SUBJECTIVE: The patient is a very pleasant 82-year-old white female with a history of systolic and d iastolic heart failure with recent exacerbation, secondary to pneumonia, who is in the process of jed ng diuresed, but is still too weak to maintain ADLs. She also has underlying history of atrial fibri llation, which has been rate controlled and anticoagulated with no evidence of embolic phenomenon. OBJECTIVE: VITAL SIGNS: Shows her blood pressure is 117/57, temperature 97, pulse 72, respirations 20, O2 satur ation 97% on 3 liters. LUNGS: Show a few crackles in the bases. CARDIAC EXAMINATION: Shows an irregularly irregular rhythm. PMI in the fifth intercostal space 1 cm left midclavicular line. ABDOMEN: Obese and nontender. SKIN AND EXTREMITIES: Show trace edema, no clubbing or cyanosis. PT/INR today is 2.8. Intake and output showed 1880 in and output not measured. Weight shows no marques ge, but unsure if this is realistic. ASSESSMENT: 1. Systolic and diastolic heart failure, slowly improving with oral Lasix. We will repeat BNP, BMP, chest x-ray in the a.m. 2. Atrial fibrillation with rate control and adequate anticoagulation. We will continue 3 mg of war farin daily and check PT/INR. 3. History of gastrointestinal bleed with no recurrence. 4. History of right upper lobe pneumonia, finishing Augmentin. 5. Chronic kidney disease, stage 3. 6. [id number] myocardial infarction. Minimal elevation in troponin 0.03, asymptomatic. PLAN: 1. Continue Coumadin at dose of 4 mg a day. Check PT/INR in the a.m. May need to decrease to 3. 2. Continue furosemide 40 mg daily and repeat BMP and BNP in the a.m. 3. Maintain daily weights. 4. Finish Augmentin 875 twice daily for pneumonia.
[2018-05-29] MEDS: traMADol HCl 50 MG TAB PO PRN ×2 (05:39→20:05)
[2018-05-29] MEDS: Levothyroxine Sodium 100 MCG TAB PO SCH (05:39)
[2018-05-29] MEDS: Levothyroxine Sodium 75 MCG TAB PO SCH (05:39)
[2018-05-29 06:39] LABS: Anion Gap 16 mmol/L (10-20); BUN (Urea Nitrogen) 19 mg/dL (9.8-20.1); Calc. Creatinine Clearance 79 mL/min (70-130); Calcium 8.9 mg/dL (7.8-10.44); Carbon Dioxide 22 mmol/L (23-31); Chloride 101 mmol/L (98-107); Estimated GFR-MDRD 51; Glucose 119 mg/dL (83-110); Potassium 3.8 mmol/L (3.5-5.1); Sodium 135 mmol/L (136-145)
[2018-05-29] MEDS: [UNRECOGNIZED DRUG - OTHER] PO SCH (09:02)
[2018-05-29] MEDS: Amoxicillin/Potassium Clav 875 MG TAB PO SCH ×2 (09:03→20:06)
[2018-05-29] MEDS: Sacubitril 49 MG/Valsartan 51 MG TABLET PO SCH ×2 (09:09→20:06)
[2018-05-29] MEDS: Gabapentin 100 MG CAP PO SCH ×2 (09:09→20:06)
[2018-05-29] MEDS: Allopurinol 100 MG TAB PO SCH (09:10)
[2018-05-29] MEDS: Cyanocobalamin (Vitamin B-12) 1,000 MCG TAB PO SCH (09:11)
[2018-05-29] MEDS: Ascorbic Acid 500 mg Chewable Tablet PO SCH (09:11)
[2018-05-29] MEDS: Docusate 100 MG CAP PO SCH (09:11)
[2018-05-29] MEDS: Carvedilol 3.125 MG TAB PO SCH ×2 (09:12→20:06)
[2018-05-29] MEDS: Amiodarone 200 MG TAB PO SCH (09:13)
[2018-05-29] MEDS: Furosemide 40 MG TAB PO SCH (09:13)
[2018-05-29 10:32] LABS: INR-International Normal Ratio 3.2; Prothrombin Time 32.5 SEC (12.0-14.7)
[2018-05-29] MEDS ORDERED: Furosemide 40 MG TAB PO SCH (16:54)
--- NOTE | 2018-05-29 18:51 | RAD ---
CHEST TWO VIEWS: History: Shortness of breath. Comparison: 05-22-18 FINDINGS: Heart size is enlarged. Internal defibrillator device is present. The parenchymal lung changes which are predominately more interstitial and upper lobe predominate, particularly in the right upper lobe are fairly similar to the prior examination. IMPRESSION: Relatively stable examination. Interstitial changes with slightly more confluent changes in the right upper lobe do not appear appreciably changed since the prior exam. There does appear to be improveme nt as compared to a 05-18-18 study. POS: PALLAVI
--- NOTE | 2018-05-29 19:42 | PRG ---
DATE OF SERVICE: 05/29/2018 SUBJECTIVE: The patient is sitting up in the chair. States she feels well, but still having signifi cant edema of her legs with some tightness and itching. Denies any shortness of breath at rest and i s ambulating to the bathroom. No dizziness or lightheadedness. OBJECTIVE: VITAL SIGNS: Blood pressure 123/61, temperature 97, pulse 72, respirations 18, O2 sats 94% on 1 lite r. LUNGS: Show crackles in the bases. CARDIAC: Displays irregularly irregular rhythm. PMI in the fifth intercostal space 1 cm left midcla vicular line. ABDOMEN: Soft, nontender. SKIN AND EXTREMITIES: Show diffuse ecchymoses and 2+ edema. LABORATORY DATA: PT/INR today is up to 3.2. BNP is up to 748. Sodium is 135, potassium 3.8, chlori de 101, bicarbonate 22, BUN 19, creatinine 1.04, glucose 119. ASSESSMENT: 1. Atrial fibrillation with rate control with supratherapeutic anticoagulation and will decrease war farin to 3 mg daily and hold today's dose. 2. Systolic and diastolic heart failure, decompensated with persistent Pulmonary and peripheral franca a, but with stable renal function. We will increase furosemide to 40 twice daily and check chest x-r ay. 3. History of gastrointestinal bleed with no recurrence. 4. History of right upper lobe pneumonia, resolving on Augmentin. 5. Stable chronic kidney disease stage 3. PLAN: 1. Hold warfarin today and decrease and start 3 mg daily tomorrow. Continue furosemide, but increas e to 40 twice daily as BNP, increasing and renal function stable, stage 3. 2. Finish Augmentin 875 twice daily. 3. Repeat BMP, BNP in the a.m.
[2018-05-29] MEDS: Simvastatin 10 MG TAB PO SCH (20:06)
[2018-05-30] MEDS: Levothyroxine Sodium 100 MCG TAB PO SCH (05:33)
[2018-05-30] MEDS: Levothyroxine Sodium 75 MCG TAB PO SCH (05:33)
[2018-05-30 05:45] LABS: INR-International Normal Ratio 3.3; Prothrombin Time 33.2 SEC (12.0-14.7)
[2018-05-30 05:51] LABS: Anion Gap 16 mmol/L (10-20); BUN (Urea Nitrogen) 20 mg/dL (9.8-20.1); Calc. Creatinine Clearance 75 mL/min (70-130); Carbon Dioxide 24 mmol/L (23-31); Chloride 100 mmol/L (98-107); Estimated GFR-MDRD 48; Glucose 121 mg/dL (83-110); Potassium 3.9 mmol/L (3.5-5.1); Sodium 136 mmol/L (136-145)
[2018-05-30] MEDS ORDERED: Furosemide 40 MG TAB PO SCH ×2 (07:30→09:00)
[2018-05-30] MEDS: Gabapentin 100 MG CAP PO SCH ×2 (08:54→20:25)
[2018-05-30] MEDS: Cyanocobalamin (Vitamin B-12) 1,000 MCG TAB PO SCH (08:55)
[2018-05-30] MEDS: Furosemide 40 MG TAB PO SCH ×2 (08:56→14:48)
[2018-05-30] MEDS: Ascorbic Acid 500 mg Chewable Tablet PO SCH (08:56)
[2018-05-30] MEDS: Allopurinol 100 MG TAB PO SCH (08:57)
[2018-05-30] MEDS: Docusate 100 MG CAP PO SCH (08:57)
[2018-05-30] MEDS: Carvedilol 3.125 MG TAB PO SCH ×2 (08:57→20:25)
[2018-05-30] MEDS: Amoxicillin/Potassium Clav 875 MG TAB PO SCH ×2 (08:58→20:25)
[2018-05-30] MEDS: Amiodarone 200 MG TAB PO SCH (08:58)
[2018-05-30] MEDS: [UNRECOGNIZED DRUG - OTHER] PO SCH (09:00)
[2018-05-30] MEDS: Sacubitril 49 MG/Valsartan 51 MG TABLET PO SCH ×2 (09:00→20:25)
[2018-05-30] MEDS ORDERED: Sacubitril 49 MG/Valsartan 51 MG TABLET PO SCH (11:15)
[2018-05-30] MEDS: traMADol HCl 50 MG TAB PO PRN (14:55)
[2018-05-30] MEDS: Warfarin Sodium 3 MG TAB PO SCH (17:40)
[2018-05-30] MEDS: Simvastatin 10 MG TAB PO SCH (20:25)
--- NOTE | 2018-05-30 22:39 | PRG ---
DATE OF ADMISSION: 05/21/2018 DATE OF SERVICE: 05/30/2018 HISTORY OF PRESENT ILLNESS: Ms. Salinas is a very pleasant 82-year-old white female, initially was br ought to [facility] with pneumonia, congestive heart failure. She was stabilized on IV antibiotics and diuresed. She was transferred to [facility] for continued phy sical therapy and occupational therapy. We continue to watch her blood pressure and BNP. She has fi nished her antibiotics. She is still on Lasix and actually it has been increased to twice a day. Cy abrams has actually done very well and is here mainly for physical therapy and occupational therapy. OBJECTIVE: VITAL SIGNS: Today reveal blood pressure this morning 125/58, pulse 77 to 95, respirations 16 to 18, O2 sat 93% to 96% on 3 liters nasal cannula. T-max 98.0. GENERAL: She is a well-developed, well-nourished, obese white female, in no apparent distress at thi s time. HEENT: Reveals normocephalic, nontraumatic cranium. Pupils are equal, round, and react. Extraocula r movements are intact. Nose and throat are slightly dry, but clear. NECK: Supple, without mass, nodes, or bruits. CHEST: Clear to auscultation. No rales, rhonchi, wheezes, or cough is heard. HEART: Reveals regular rate and rhythm without murmurs, gallops, or rubs. ABDOMEN: Morbidly obese, soft, nontender without organomegaly. Normal bowel sounds in all 4 quadran ts. No rebound or guarding is noted. GENITOURINARY: Deferred. EXTREMITIES: Reveal no clubbing, cyanosis, or edema. LABORATORY DATA: INR today was 3.3. Patient's Coumadin has been decreased to 4.0. ASSESSMENT: 1. Pneumonia, resolved. 2. Congestive heart failure, stable. 3. Gastrointestinal bleed, followed by Dr. Masters. 4. Acute hypoxic respiratory failure secondary to congestive heart failure, responding well to diure sis. 5. Normocytic anemia. 6. Chronic kidney disease, stage 3. 7. Non-ST elevated myocardial infarction, type 2. Troponin was 0.03. 8. Urinary tract infection. 9. Deep venous thrombosis prophylaxis. 10. Hypothyroidism. 11. History of atrial fibrillation. 12. Continue amiodarone. 13. Hypertension. PLAN: 1. Patient's Coumadin is now 4 mg daily. 2. Continue stress ulcer prophylaxis. 3. Continue decubitus precautions. 4. Deep venous thrombosis prophylaxis. 5. Follow patient for signs and symptoms of congestive heart failure. 6. Monitor the patient's INR daily. 7. Continue to monitor the patient's blood pressure closely. 8. Continue to monitor the patient's heart rate. 9. Continue physical therapy and occupational therapy. 10. Discharge end of this week.
[2018-05-31 05:38] LABS: INR-International Normal Ratio 3.2; Prothrombin Time 32.5 SEC (12.0-14.7)
[2018-05-31] MEDS: Levothyroxine Sodium 75 MCG TAB PO SCH (05:54)
[2018-05-31] MEDS: Levothyroxine Sodium 100 MCG TAB PO SCH (05:54)
[2018-05-31] MEDS: [UNRECOGNIZED DRUG - OTHER] PO SCH (09:10)
[2018-05-31] MEDS: Allopurinol 100 MG TAB PO SCH (09:37)
[2018-05-31] MEDS: Ascorbic Acid 500 mg Chewable Tablet PO SCH (09:37)
[2018-05-31] MEDS: Sacubitril 49 MG/Valsartan 51 MG TABLET PO SCH ×2 (09:37→21:14)
[2018-05-31] MEDS: Amoxicillin/Potassium Clav 875 MG TAB PO SCH ×2 (09:37→21:14)
[2018-05-31] MEDS: Furosemide 40 MG TAB PO SCH ×2 (09:38→13:09)
[2018-05-31] MEDS: Gabapentin 100 MG CAP PO SCH ×2 (09:38→21:14)
[2018-05-31] MEDS: Carvedilol 3.125 MG TAB PO SCH ×2 (09:38→21:14)
[2018-05-31] MEDS: Amiodarone 200 MG TAB PO SCH (09:38)
[2018-05-31] MEDS: Docusate 100 MG CAP PO SCH (09:39)
[2018-05-31] MEDS: Cyanocobalamin (Vitamin B-12) 1,000 MCG TAB PO SCH (09:39)
[2018-05-31] MEDS: traMADol HCl 50 MG TAB PO PRN ×2 (13:08→21:14)
[2018-05-31] MEDS: Warfarin Sodium 3 MG TAB PO SCH (17:56)
[2018-05-31] MEDS: Simvastatin 10 MG TAB PO SCH (21:14)
--- NOTE | 2018-05-31 22:12 | PRG ---
DATE OF SERVICE: 05/31/2018 DATE OF ADMISSION: 05/21/2018 HISTORY OF PRESENT ILLNESS: Ms. Salinas is a very pleasant 82-year-old white female. She presented t o the emergency room at [facility] with pneumonia and congestive heart failure. She was given IV antibiotics and IV diuretics. She eventually was stabilized and transferred to [facility] for continued physical therapy and occupational therapy. She has finished her antibiotics. She is still on Lasix twice a day. She has done very well. She is approaching [facility] benefit and will be discharged on . PHYSICAL EXAMINATION: VITAL SIGNS: Today reveal blood pressure this morning 123/56, pulse 73-78 respirations 18-20, O2 sat 94%-95% on 3 liters. GENERAL: Reveals a well-developed, well-nourished, slightly obese white female in no apparent distre ss at this time. HEENT: Reveals normocephalic, nontraumatic cranium. Pupils are equally round and reactive. Extraoc ular movements are intact. Nose and throat are slightly dry. NECK: Supple, without mass, nodes or bruits. CHEST: Clear to auscultation. No rales, rhonchi or wheezes are heard. HEART: Reveals a regular rate and rhythm without murmurs, gallops or rubs. ABDOMEN: Obese, soft, nontender, without organomegaly. No rebound or guarding is noted. Normal bow el sounds are noted in all 4 quadrants. : Deferred. EXTREMITIES: Reveal no clubbing, cyanosis, no edema. LABORATORY DATA: Reveal INR this morning was 3.2, which is down from 3.3 yesterday. ASSESSMENT: 1. Pneumonia, resolved, off antibiotics. 2. Congestive heart failure, stable. 3. Gastrointestinal bleed, followed by Dr. Masters. 4. Acute hypoxic respiratory failure, most likely secondary to congestive heart failure and pneumoni a. 5. Normocytic anemia. 6. Chronic kidney disease stage 3. 7. Non-ST elevated myocardial infarction, type 2. Troponin was 0.03. 8. Urinary tract infection. 9. Deep venous thrombosis prophylaxis. 10. Hypothyroidism. 11. History of atrial fibrillation. 12. Presently on amiodarone. 13. Hypertension. PLAN: 1. The patient's INR is 3.2 and trending down. 2. Continue stress ulcer prophylaxis. 3. Continue decubitus precautions. 4. Follow patient for signs and symptoms of congestive heart failure. 5. Monitor the patient's INR daily. 6. Continue to monitor the patient's blood pressure closely. 7. Continue to monitor the patient's heart rate. 8. Continue physical therapy and occupational therapy. 9. Discharge on .
[2018-06-01 05:47] LABS: Prothrombin Time 31.1 SEC (12.0-14.7)
[2018-06-01] MEDS: Levothyroxine Sodium 100 MCG TAB PO SCH (07:25)
[2018-06-01] MEDS: Levothyroxine Sodium 75 MCG TAB PO SCH (07:25)
[2018-06-01] MEDS: Amoxicillin/Potassium Clav 875 MG TAB PO SCH ×2 (09:34→20:59)
[2018-06-01] MEDS: Ascorbic Acid 500 mg Chewable Tablet PO SCH (09:34)
[2018-06-01] MEDS: Cyanocobalamin (Vitamin B-12) 1,000 MCG TAB PO SCH (09:35)
[2018-06-01] MEDS: Docusate 100 MG CAP PO SCH (09:36)
[2018-06-01] MEDS: Furosemide 40 MG TAB PO SCH ×2 (09:36→14:57)
[2018-06-01] MEDS: Carvedilol 3.125 MG TAB PO SCH ×2 (09:36→20:59)
[2018-06-01] MEDS: Amiodarone 200 MG TAB PO SCH (09:37)
[2018-06-01] MEDS: Sacubitril 49 MG/Valsartan 51 MG TABLET PO SCH ×2 (09:42→20:59)
[2018-06-01] MEDS: Allopurinol 100 MG TAB PO SCH (09:43)
[2018-06-01] MEDS: Gabapentin 100 MG CAP PO SCH ×2 (09:43→20:59)
[2018-06-01] MEDS: [UNRECOGNIZED DRUG - OTHER] PO SCH (09:47)
[2018-06-01] MEDS: Warfarin Sodium 3 MG TAB PO SCH (17:10)
[2018-06-01] MEDS: traMADol HCl 50 MG TAB PO PRN (20:59)
[2018-06-01] MEDS: Simvastatin 10 MG TAB PO SCH (20:59)
--- NOTE | 2018-06-01 21:46 | PRG ---
DATE OF SERVICE: 06/01/2018 SUBJECTIVE: The patient is a very pleasant 82-year-old white female that presented to the emergency room at [facility] with shortness of breath. She was found to be in congestive h eart failure along with pneumonia. She was given IV antibiotics and IV diuretics. She was stabilize d and eventually transferred to [facility] for continued physical therapy, occupation al therapy, and to finish antibiotics and continue her Lasix. The patient states she is doing very well and is planning on going home tomorrow, which is what we storm ve planned. She has reached maximum medical benefit. She will have physical therapy in the morning. Physical therapy to help her get into her vehicle. OBJECTIVE: VITAL SIGNS: Today reveal blood pressure 128/58, pulse 70-95, respirations 20, O2 sat 85-95%, T-max 96.6. LABORATORY DATA: Today reveals an INR of 3.0. PHYSICAL EXAMINATION: GENERAL: This is a well-developed, well-nourished, slightly obese white female in no apparent distre ss at this time. HEENT: Reveals normocephalic, nontraumatic cranium. Pupils equal, round, and reactive. Extraocular movements intact. Nose and throat are clear and dry. NECK: Supple, without masses, nodes or bruits. CHEST: Clear to auscultation. No rales, rhonchi or wheezes are heard. CARDIOVASCULAR: Heart reveals a regular rate and rhythm without murmurs, gallops or rubs. ABDOMEN: Obese, soft, nontender, without organomegaly. Normal bowel sounds are noted. No rebound o r guarding is noted. : Deferred. EXTREMITIES: Reveal no clubbing, cyanosis or edema. IMPRESSION: 1. Pneumonia, resolved, off antibiotics. 2. Congestive heart failure, presently stable on Lasix 40 twice a day. 3. Gastrointestinal bleed, followed by Dr. Masters. 4. Acute hypoxic respiratory failure secondary to congestive heart failure and pneumonia. 5. Normocytic anemia. 6. Chronic kidney disease stage 3. 7. Non-ST elevated myocardial infarction, type 2. 8. Urinary tract infection. 9. Deep venous thrombosis prophylaxis. 10. Hypothyroidism. 11. History of atrial fibrillation, presently on amiodarone. 13. Hypertension. PLAN: 1. The patient's INR is 3.0 and trending down. 2. Continue stress ulcer prophylaxis. 3. Continue decubitus precautions. 4. Follow patient for signs and symptoms of congestive heart failure. 5. Monitor the patient's INR daily. 6. Continue to monitor the patient's blood pressure. 7. Continue to monitor the patient's heart rate. 8. Continue physical therapy and occupational therapy. 9. Discharge tomorrow after physical therapy in the afternoon.
[2018-06-02] MEDS: traMADol HCl 50 MG TAB PO PRN (04:52)
[2018-06-02] MEDS: Levothyroxine Sodium 100 MCG TAB PO SCH (04:56)
[2018-06-02] MEDS: Levothyroxine Sodium 75 MCG TAB PO SCH (04:56)
[2018-06-02 05:19] LABS: INR-International Normal Ratio 3.3; Prothrombin Time 33.2 SEC (12.0-14.7)
[2018-06-02 07:21] VITALS: TEMP 97.7
[2018-06-02] MEDS: [UNRECOGNIZED DRUG - OTHER] PO SCH (08:29)
[2018-06-02] MEDS: Gabapentin 100 MG CAP PO SCH (08:30)
[2018-06-02] MEDS: Sacubitril 49 MG/Valsartan 51 MG TABLET PO SCH (08:30)
[2018-06-02] MEDS: Amoxicillin/Potassium Clav 875 MG TAB PO SCH (08:30)
[2018-06-02] MEDS: Docusate 100 MG CAP PO SCH (08:30)
[2018-06-02] MEDS: Allopurinol 100 MG TAB PO SCH (08:30)
[2018-06-02] MEDS: Ascorbic Acid 500 mg Chewable Tablet PO SCH (08:30)
[2018-06-02] MEDS: Cyanocobalamin (Vitamin B-12) 1,000 MCG TAB PO SCH (08:30)
[2018-06-02] MEDS: Furosemide 40 MG TAB PO SCH (08:30)
[2018-06-02] MEDS: Carvedilol 3.125 MG TAB PO SCH (08:31)
[2018-06-02] MEDS: Amiodarone 200 MG TAB PO SCH (08:31)
[2018-06-02 10:49] VITALS: BP 110/55
[2018-06-02 11:40] LABS: #Eosinphils 0.3 thou/uL (0.0-0.7); #Lymphocytes 1.2 thou/uL (1.20-3.40); #Monocytes 0.7 thou/uL (0.11-0.59); #Neutrophils 5.5 thou/uL (1.40-6.50); %Basophils 0.6 % (0.0-1.0); %Eosinophils 4.3 % (0.0-10.0); %Lymphocytes 15.6 % (21.0-51.0); %Monocytes 8.7 % (0.0-10.0); %Neutrophils 70.8 % (42.0-75.0); Hemoglobin 9.4 g/dL (12.0-16.0); Mean Corpuscular HGB CONC 31.2 g/dL (32.0-36.0); Mean Corpuscular Volume 95.9 fL (78.0-98.0); Mean Platelet Volume 8.7 fL (7.4-10.4); Platelet Count 170 thou/uL (130-400); RBC Distribution Width 15.6 % (11.5-14.5); Red Blood Cell (RBC) Count 3.13 mill/uL (4.20-5.40); White Blood Cell (WBC) Count 7.8 thou/uL (4.8-10.8)
[2018-06-02 12:06] LABS: ALT (SGPT) 20 U/L (8-55); AST (SGOT) 19 U/L (5-34); Albumin 3.5 g/dL (3.4-4.8); Alkaline Phosphatase 76 U/L (40-150); Anion Gap 14 mmol/L (10-20); BUN (Urea Nitrogen) 28 mg/dL (9.8-20.1); Bilirubin, Total 0.5 mg/dL (0.2-1.2); Calc. Creatinine Clearance 63 mL/min (70-130); Calcium 8.8 mg/dL (7.8-10.44); Carbon Dioxide 29 mmol/L (23-31); Chloride 97 mmol/L (98-107); Estimated GFR-MDRD 39; Glucose 149 mg/dL (83-110); Potassium 3.9 mmol/L (3.5-5.1); Protein, Total 5.5 g/dL (6.0-8.3); Sodium 136 mmol/L (136-145)
--- NOTE | 2018-06-02 14:23 | PRG ---
DISCHARGE SUMMARY DATE OF SERVICE: 06/02/2018 SUBJECTIVE: This patient is a well-developed, well-nourished, very pleasant 82- year-old white female that presented to the emergency room at [facility] with shortness of breath. She was found to be in congestive heart failure and had pneumonia. She was started on IV Lasix and given IV antibiotics. She eventually was stabilized and transferred to [facility]. She was sent here for physical therapy, occupational therapy, and to finish her antibiotics. The patient is doing very well, has reached maximum medical benefit. She is going home today after her physical therapy. PHYSICAL EXAMINATION: VITAL SIGNS: Today reveal blood pressure 113/73 this morning, pulse 70-72, respirations 18, O2 sat 94%-96% on 3 liters nasal cannula, T-max 97.7. GENERAL: This is a well-developed, well-nourished, very pleasant, slightly obese white female in no apparent distress at this time. HEENT: Reveals normocephalic, nontraumatic cranium. Pupils are equally round and reactive. Extraocular movements are intact. Nose and throat are slightly dry, but clear. NECK: Supple, without mass, nodes, bruits. CHEST: Clear to auscultation. No rales, rhonchi or wheezes are heard. HEART: Reveals a regular rate and rhythm without murmurs, gallops or rubs. ABDOMEN: Obese, soft, nontender, without organomegaly, normal bowel sounds are noted. No rebound or guarding is noted. GENITOURINARY: Deferred. EXTREMITIES: Reveal no clubbing, cyanosis or edema. IMPRESSION: 1. Pneumonia, resolved, off antibiotics. 2. Congestive heart failure, stable on 80 mg of Lasix daily. 3. Gastrointestinal bleed, followed by Dr. Masters. 4. Acute hypoxic respiratory failure secondary to congestive heart failure and pneumonia, much improved. 5. Normocytic anemia. 6. Chronic kidney disease stage 3. 7. Non-ST elevated myocardial infarction, type 2. 8. Urinary tract infection. 9. Deep venous thrombosis prophylaxis. 10. Hypothyroidism. 11. History of atrial fibrillation, presently on amiodarone. 12. Hypertension. DISCHARGE MEDICATIONS: Are the same medications at home: 1. Aspirin 81 mg daily. 2. Coumadin 3 mg daily and 4 mg on Wednesday. 3. Amiodarone 100 mg daily. 4. Carvedilol 3.125 mg daily. 5. Lasix 80 mg daily, either once a day or 40 mg twice a day. 6. Synthroid 175 mcg daily. 7. Pravachol 20 mg daily. 8. Gabapentin 100 mg twice a day. 9. Entresto 97-103 1 pill twice a day. 10. Allopurinol 200 mg daily. 11. Iron pills daily. 12. Vitamin C 1000 mg daily. 13. Docusate sodium 100 mg daily. 14. Vitamin B12 1000 mcg daily. 15. Protonix 40 mg daily. 16. Tramadol only if needed. PLAN: The patient is ready for discharge today. 1. The patient's INR was 3.3 yesterday, but it was trending down. 2. Continue stress ulcer prophylaxis. 3. Continue decubitus precautions at home. 4. Patient to follow her oxygen sats at home with her O2 sat meter. 5. Continue to monitor the patient's INR next week. 6. Continue to monitor the patient's blood pressure. 7. Monitor the patient's heart rate. 8. Patient will have [facility] for physical therapy and occupational therapy to check an INR and check her blood pressures and oxygen saturation. 9. The patient will see me next week. 10. We will draw blood before she leaves today. GONZÁLEZ
== END 2018-06-02 13:24 | disposition home health service (06) | DRG 280 ==
LOC: NAV ACUTE 14:01
PROVIDERS: ADMIT Family Medicine; ATTEND Family Medicine
DX: I13.0 Hypertensive heart and chronic kidney disease with heart failure and stage 1 through stage 4 chronic kidney disease, or unspecified chronic kidney disease (principal); J18.9 Pneumonia, unspecified organism; I21.A1 Myocardial infarction type 2; J96.01 Acute respiratory failure with hypoxia; I50.43 Acute on chronic combined systolic (congestive) and diastolic (congestive) heart failure; N39.0 Urinary tract infection, site not specified; Z68.41 Body mass index [BMI] 40.0-44.9, adult; R53.1 Weakness; E78.5 Hyperlipidemia, unspecified; J45.909 Unspecified asthma, uncomplicated; K21.9 Gastro-esophageal reflux disease without esophagitis; E03.9 Hypothyroidism, unspecified; M10.9 Gout, unspecified; Z90.49 Acquired absence of other specified parts of digestive tract; Z95.0 Presence of cardiac pacemaker; Z98.51 Tubal ligation status; Z87.891 Personal history of nicotine dependence; K64.8 Other hemorrhoids; I48.91 Unspecified atrial fibrillation; D63.1 Anemia in chronic kidney disease; E66.01 Morbid (severe) obesity due to excess calories; Z79.01 Long term (current) use of anticoagulants; N18.3 Chronic kidney disease, stage 3 (moderate); E11.22 Type 2 diabetes mellitus with diabetic chronic kidney disease
CPT/HCPCS: 36415; 71045; 71046; 80048; 80053; 81001; 83880; 85007; 85025; 85027; 85610; G8978-GP-CK; G8979-GP-CI

== ENCOUNTER 2018-07-21 14:30 | Outpatient (CLI) | payer MEDICARE ==
[2018-07-21 15:04] LABS: INR-International Normal Ratio 1.3; Prothrombin Time 16.5 SEC (12.0-14.7)
[2018-07-21 16:58] LABS: Follow-up Chemistry Comp? YES
== END 2018-07-21 14:31 | disposition home or self-care (01) ==
LOC: NAV LABSP 14:30
PROVIDERS: ATTEND Internal Medicine
DX: Z51.81 Encounter for therapeutic drug level monitoring (principal); I13.0 Hypertensive heart and chronic kidney disease with heart failure and stage 1 through stage 4 chronic kidney disease, or unspecified chronic kidney disease; E11.22 Type 2 diabetes mellitus with diabetic chronic kidney disease; I50.9 Heart failure, unspecified; N18.9 Chronic kidney disease, unspecified; J44.9 Chronic obstructive pulmonary disease, unspecified; Z79.01 Long term (current) use of anticoagulants
CPT/HCPCS: 36415; 85610